=== PATIENT | male | born 1980 | race Caucasian/White ===

== ENCOUNTER 2023-04-18 13:27 | Emergency (ER) | payer MEDICAID, SELFPAY ==
[2023-04-18 13:39] VITALS: BP 132/72; PULSE 82; RESP 15; TEMP 36.9; O2SAT 94
--- NOTE | 2023-04-18 13:45 | DI.US_ITS ---
Exam(s) US SCROTUM EXAM: US SCROTUM CLINICAL HISTORY: LLQ pain, Left Testicle pain, R/O Hernia. TECHNIQUE: Scrotal ultrasound performed using grayscale, color-flow and spectral Doppler analysis. COMPARISON: No exams were available for comparison FINDINGS: Right testicle: 5 x 2.7 x 4.7 cm Echogenicity: Normal. Contour: Smooth. Mass: None seen. Microlithiasis: None. Hydrocele: 2.2 x 1.2 x 0.7 cm hydrocele. Variocele: None. Hernia: No peristalsing bowel loop identified. Epididymis: 6 mm epididymal cyst. Left testicle: 6 x 2.4 x 3.8 cm Echogenicity: Normal. Contour: Smooth. Mass: None seen. Microlithiasis: None. Hydrocele: None. Variocele: None. Hernia: No peristalsing bowel loop identified. Epididymis: Normal. Left inguinal region: There is a fat containing hernia in the left inguinal region. It does not exte nd into the scrotal sac. The opening of the hernia measures 1.9 cm. DOPPLER: Color: Symmetric and uniform, no hyperemia. IMPRESSION: 1. Normal appearing bilateral testicles. 2. Fat containing left inguinal hernia. It does not extend into the scrotal sac. 3. Findings were discussed with Mary Spear at 3:47 p.m. on 04/18/2023. DATA REPOSITORY:
--- NOTE | 2023-04-18 14:02 | W.ED.GENAD ---
Discharge Plan Disposition Patient Disposition: Home Condition: Stable Discharge Details Clinical Impression: Left inguinal hernia Primary Care Provider: Joaquin Pinedo ED Provider: Mary Spear Discharge Instructions Instructions: Inguinal Hernia (ED) Additional Instructions: Ultrasound shows a fat containing inguinal hernia. This explains the discomfort you have been feeling. Please follow-up with general surgery to discuss options for having this repaired. At this time there is no abnormality in the testicle. Your labs are largely within normal limits. Follow up with primary care provider in 3-5 days. Return to ED sooner if any worsening pain, swelling, vomiting, fever or concerns. Increase oral fluids. Please take Tylenol or Ibuprofen with food every 4-6 hours as needed for pain and swelling. Referrals: Joaquin Pinedo [Primary Care Provider] - Return if symptoms worsen Joanne Sherman DO [OSTEOPATHIC DOCTOR] - 2 weeks Discharge Data Discharge Date/Time-TO BE ENTERED AT DEPARTURE: 04/18/23 16:01 Medical Decision Making 42-year-old male presents to the ER with chief complaint of left lower quadrant abdominal pain which radiates into his left testicle which has gotten worse over the last few days. Pain is worse with moving and palpation. He denies any nausea vomiting diarrhea denies any fever or chills. No history of abdominal surgeries. Denies any problems urinating or dysuria. CBC, CMP, lipase urinalysis ordered. Ultrasound scrotum ordered to rule out hernia versus epididymitis versus orchitis. Other differential diagnosis include diverticulitis, gastroenteritis, musculoskeletal strain. CBC is within normal limits, CMP largely within normal limits BUN slightly elevated at 19 creatinine 1.2, urinalysis shows trace ketones no evidence of UTI no leukocytes, no nitrites. US shows a fat containing inguinal hernia, no other abnormality. Instructed patient to follow-up with general surgery, given strict return instructions and home care. This text was generated using TMation system, please disregard any oddities of phrase or misspellings. Lab Data Lab results reviewed: Yes I reviewed the patient's lab results. Labs: Laboratory Tests Range/Units 04/18/23 04/18/23 04/18/23 14:02 14:02 14:02 WBC (4.4-10.8) 10^3/uL 8.89 RBC (4.36-5.78) 10^6/uL 5.08 Hgb (13.5-17.5) g/dL 15.1 Hct (40.0-50.0) % 44.6 MCV (80-95) fL 88 MCH (27.0-33.0) pg 29.7 MCHC (32.0-36.0) % 33.9 RDW (11.8-14.1) % 13.0 Plt Count (130-400) 10^3/uL 223 MPV (8.0-11.0) fL 10.6 Immature Gran % 0.2 Neutrophils % 72.6 Lymphocytes % 20.5 Monocytes % 5.5 Eosinophils % 1.1 Basophils % 0.1 Nucleated RBC % (0.0-0.3) % 0.0 Absolute Neutrophils (1.2-6.7) 10^3/uL 6.45 Absolute Lymphocytes (1.2-3.4) 10^3/uL 1.82 Absolute Monocytes (0.1-0.8) 10^3/uL 0.49 Absolute Eosinophils (0.0-0.7) 10^3/uL 0.10 Absolute Basophils (0.0-0.2) 10^3/uL 0.01 Sodium (136-145) mmol/L 139 Potassium (3.5-5.1) mmol/L 3.7 Chloride (98-107) mmol/L 103 Carbon Dioxide (21.0-32.0) mmol/L 28.1 Anion Gap (3-11) mmol/L 7.9 BUN (7-18) mg/dL 19 H Creatinine (0.70-1.30) mg/dL 1.2 Est GFR (CKD-EPI 2020) (mL/min/1.73m2) 77.92 Glucose (74-106) mg/dL 106 Calcium (8.5-10.1) mg/dL 9.4 Magnesium (1.8-2.4) mg/dL 2.1 Total Bilirubin (0.2-1.0) mg/dL 0.6 AST (15-37) U/L 23 ALT (16-63) U/L 38 Alkaline Phosphatase (46-116) U/L 54 Total Protein (6.4-8.2) g/dL 7.3 Albumin (3.4-5.0) g/dL 4.4 Lipase (16-77) U/L 40 Urine Color (Yellow) Urine Clarity (Clear) Urine pH (5-8) Ur Specific [place] (1.005-1.025) Urine Protein (Negative) mg/dL Urine Ketones (Negative) mg/dL Urine Blood (Negative) Urine Nitrite (Negative) Urine Bilirubin (Negative) Urine Urobilinogen (Up to 0.2) mg/dL Ur Leukocyte Esterase (Negative) Urine Glucose (Negative) mg/dL Range/Units 04/18/23 14:54 WBC (4.4-10.8) 10^3/uL RBC (4.36-5.78) 10^6/uL Hgb (13.5-17.5) g/dL Hct (40.0-50.0) % MCV (80-95) fL MCH (27.0-33.0) pg MCHC (32.0-36.0) % RDW (11.8-14.1) % Plt Count (130-400) 10^3/uL MPV (8.0-11.0) fL Immature Gran % Neutrophils % Lymphocytes % Monocytes % Eosinophils % Basophils % Nucleated RBC % (0.0-0.3) % Absolute Neutrophils (1.2-6.7) 10^3/uL Absolute Lymphocytes (1.2-3.4) 10^3/uL Absolute Monocytes (0.1-0.8) 10^3/uL Absolute Eosinophils (0.0-0.7) 10^3/uL Absolute Basophils (0.0-0.2) 10^3/uL Sodium (136-145) mmol/L Potassium (3.5-5.1) mmol/L Chloride (98-107) mmol/L Carbon Dioxide (21.0-32.0) mmol/L Anion Gap (3-11) mmol/L BUN (7-18) mg/dL Creatinine (0.70-1.30) mg/dL Est GFR (CKD-EPI 2020) (mL/min/1.73m2) Glucose (74-106) mg/dL Calcium (8.5-10.1) mg/dL Magnesium (1.8-2.4) mg/dL Total Bilirubin (0.2-1.0) mg/dL AST (15-37) U/L ALT (16-63) U/L Alkaline Phosphatase (46-116) U/L Total Protein (6.4-8.2) g/dL Albumin (3.4-5.0) g/dL Lipase (16-77) U/L Urine Color (Yellow) Yellow Urine Clarity (Clear) Clear Urine pH (5-8) 5.5 Ur Specific [place] (1.005-1.025) >= 1.030 H Urine Protein (Negative) mg/dL Negative Urine Ketones (Negative) mg/dL Trace H Urine Blood (Negative) Negative Urine Nitrite (Negative) Negative Urine Bilirubin (Negative) Negative Urine Urobilinogen (Up to 0.2) mg/dL 0.2 Ur Leukocyte Esterase (Negative) Negative Urine Glucose (Negative) mg/dL Negative HPI General Mode of arrival: ambulatory. Date/Time Provider Initiated Documentation: 04/18/23 13:52. Limitations to Documentation: no limitations. Information obtained by: patient, RN notes reviewed and old records reviewed. HPI Narrative: 42-year-old male presents to the ER with chief complaint of left lower quadrant abdominal pain which radiates into his left testicle which has gotten worse over the last few days. Pain is worse with moving and palpation. He denies any nausea vomiting diarrhea denies any fever or chills. No history of abdominal surgeries. Denies any problems urinating or dysuria. Related Data Allergies Allergy/AdvReac Type Severity Reaction Status Date / Time clindamycin Allergy Intermediate Other (See Unverified 04/18/23 13:44 Comment) General Stated Complaint: Abd Prob CHUCHO: 3 Review of Systems All systems reviewed & are unremarkable except as noted in HPI and below Gastrointestinal Gastrointestinal: Reports as per HPI and Reports abdominal pain Genitourinary Genitourinary: Reports as per HPI, Denies penile discharge and Reports testicular pain [facility] All Active Problems (Updated 04/18/23 @ 15:52 by Mary Spear NP) Left inguinal hernia (Acute) Social History Smoking risk assessment performed?: No Exam Narrative Exam Narrative: Constitutional: Alert and oriented x3. Appears stated age. Normal body habitus. Head: Normocephalic, no trauma. Eyes: Pupils PERRL, Red reflex noted, EOM's intact. Eyelids symmetrical without lesions, discharge, or swelling. Chest: RRR, Normal S1, S2, distal pulses intact. Resp: Lungs clear to auscultation bilaterally, no wheezes, rales, or rhonchi. Abdomen: Soft, non-distended, Normoactive bowel sounds all 4 quads. Tenderness with palpation left lower quadrant and left testicle tenderness with palpation, no significant testicle swelling or erythema, no palpable hernia no testicle discharge noted. [place] juvenile court judge at bedside for witness. Musculoskeletal: Normal gait, 5/5 strength to all four extremities. Skin: No suspicious rashes or lesions. Capillary refill less than 2 sec. Neurologic: Cranial nerves II-XII intact. Alert and oriented x 3. Motor: No deficits noted. Sensory: Intact bilaterally all 4 extremities. Hematologic/Lymphatic: No ecchymosis, no lymphadenopathy. Course Vital Signs Vital signs: Vital Signs Temperature 36.9 C 04/18/23 13:39 Pulse 82 04/18/23 13:39 Respiratory Rate 15 04/18/23 13:39 Blood Pressure 132/72 04/18/23 13:39 Pulse Oximetry 94 04/18/23 13:39 Temperature 36.9 C 04/18/23 13:39 Temperature Source Oral 04/18/23 13:39 Pulse 82 04/18/23 13:39 Respiratory Rate 15 04/18/23 13:39 Blood Pressure 132/72 04/18/23 13:39 Blood Pressure Position Sitting 04/18/23 13:39 Pulse Oximetry 94 04/18/23 13:39 Oxygen Delivery Method Room Air 04/18/23 13:39 Oxygen Flow Rate 0 04/18/23 13:39 Pain Level 4 04/18/23 13:39
[2023-04-18 14:21] LABS: Abs Immature Grans 0.02 10^3/uL (0.0-0.06); Absolute Basophil Count 0.01 10^3/uL (0.0-0.2); Absolute Lymphocyte Count 1.82 10^3/uL (1.2-3.4); Absolute Monocyte Count 0.49 10^3/uL (0.1-0.8); Absolute Neutrophil Count 6.45 10^3/uL (1.2-6.7); Basophils % 0.1; Eosinophils % 1.1; HCT 44.6 % (40.0-50.0); HGB 15.1 g/dL (13.5-17.5); Immature Grans % 0.2; Lymphocytes % 20.5; MCH 29.7 pg (27.0-33.0); MCHC 33.9 % (32.0-36.0); MCV 88 fL (80-95); MPV 10.6 fL (8.0-11.0); Monocytes % 5.5; Neutrophils % 72.6; Platelet Count 223 10^3/uL (130-400); RBC 5.08 10^6/uL (4.36-5.78); RDW-SD 42.4 fL; WBC 8.89 10^3/uL (4.4-10.8)
[2023-04-18 14:24] LABS: Lipase 40 U/L (16-77)
[2023-04-18 14:29] LABS: ALT 38 U/L (16-63); AST 23 U/L (15-37); Albumin 4.4 g/dL (3.4-5.0); Alkaline Phosphatase 54 U/L (46-116); Anion Gap 7.9 mmol/L (3-11); BUN 19 mg/dL (7-18); Bilirubin, Total 0.6 mg/dL (0.2-1.0); CO2 28.1 mmol/L (21.0-32.0); CREATININE 1.2 mg/dL (0.70-1.30); Calcium 9.4 mg/dL (8.5-10.1); Chloride 103 mmol/L (98-107); Estimated GFR 77.92 (mL/min/1.73m2); Glucose 106 mg/dL (74-106); Magnesium 2.1 mg/dL (1.8-2.4); Potassium 3.7 mmol/L (3.5-5.1); Sodium 139 mmol/L (136-145); Total Protein 7.3 g/dL (6.4-8.2)
[2023-04-18 15:10] LABS: Bilirubin Negative (Negative); Blood Negative (Negative); Clarity Clear (Clear); Glucose Negative (Negative); Ketones Trace mg/dL (Negative); Leukocyte Esterase Negative (Negative); Nitrite Negative (Negative); Specific Gravity >= 1.030 (1.005-1.025); Urobilinogen 0.2 mg/dL (Up to 0.2); pH 5.5 (5-8)
--- NOTE | 2023-04-18 15:55 | NUR.NOTE ---
Nursing Note:general surgery referral
== END 2023-04-18 16:01 | disposition home or self-care (01) ==
PROVIDERS: Emergency Provider Registered Nurse Emergency; PCP Naturopath
DX: R10.32 Left lower quadrant pain (principal); K40.90 Unilateral inguinal hernia, without obstruction or gangrene, not specified as recurrent; N50.812 Left testicular pain
CPT/HCPCS: 36415; 80053; 83690; 99284; 76870; 81003; 83735; 85025; 99283

== ENCOUNTER 2023-05-17 07:08 | Day surgery (SDC) | payer MEDICAID, SELFPAY ==
[2023-05-17] VITALS (11 sets, daily range): BP systolic 128–151; BP diastolic 77–98; PULSE 65–78; RESP 16–22; TEMP 36–36.8; O2SAT 94–99; BMI 29.9
--- NOTE | 2023-05-17 07:08 | W.PM.PROGNOT ---
Date of Service Date of service: 05/17/23 Time of Service: 08:58 Assessment and Plan Assessment and plan (1) Bilateral inguinal hernia: Status: Acute Assessment and plan: Cholo is a pleasant 42-year-old gentleman who on exam has small bilateral inguinal hernias which are both reducible.? I reviewed the pathophysiology of inguinal hernias with him as well as the open repair.? We reviewed the surgery itself as well as the risks, benefits and complications.? I also reviewed restrictions after surgery which includes 4 weeks of no lifting pulling or pushing more than 10 pounds. We discussed pain control after surgery. He wished to proceed Proceed with Bilateral open inguinal hernia repair with mesh Subjective Subjective Interval history since last seen: I am seeing Chris in [facility] today with his . He is doing well. He is not having any new symptoms. We went over the surgery, its complications, pain control after surgery as well as post-op expectations. Exam Const General: cooperative, comfortable and no acute distress Nutritional Appearance: average body habitus Orientation: alert and oriented x3 HENMT Head: normocephalic and atraumatic Resp Effort & Inspection: normal respiratory effort GI Palpation: hernia (bilateral inguinal) Time Spent with Patient Time Spent with Patient: <25 minutes Time was spent: counseling the patient
--- NOTE | 2023-05-17 07:08 | W.PM.OP ---
Date of service: 05/17/23 Time of Service: 10:36 Operative Note Operative Note DATE OF PROCEDURE: 05/17/23 PRE-OP DIAGNOSIS: Bilateral inguinal hernias POST-OP DIAGNOSIS: other (Bilateral direct and indirect hernia ) PROCEDURE: Bilateral open inguinal hernia repair with mesh SURGEON: Sandrine Mancia Refer to Anesthesia Record ESTIMATED BLOOD LOSS: 20 COMPLICATIONS: None Patient was transported to: PACU Patient's condition: stable Implants: PerFix Light Plug Right: [id number] LOT- [id number] 2027-07-08 Left: REF [id number] LOT- [id number] - 2027-07-08 Indications: Cholo is a pleasant 42-year-old gentleman who on exam has small bilateral inguinal hernias which are both reducible.? I reviewed the pathophysiology of inguinal hernias with him as well as the open repair.? We reviewed the surgery itself as well as the risks, benefits and complications.? I also reviewed restrictions after surgery which includes 4 weeks of no lifting pulling or pushing more than 10 pounds. We discussed pain control after surgery Findings: Right- cord lipoma, Small indirect and small direct hernia Left- Cord lipoma. large indirect hernia and mod direct hernia Procedure Description: After informed consent was obtained the patient was taken to the operating room and placed in a supine position. Monitors and SCDs were applied and a timeout was done. The patient's name, date of , procedure type, procedure site, allergies to medications, preoperative antibiotic, and DVT prophylaxis were all reviewed. Fire risk was assessed. Next anesthesia did a tap block on both sides under ultrasound guidance. Please see their separate dictation. Once anesthesia was done the abdomen was prepped and draped in a sterile surgical fashion. 0.5% Marcaine was injected into the dermis in the right lower quadrant. An incision was made with a 10 blade in the right lower quadrant. Dissection was done with cautery through the subcutaneous tissues and Suzi's fascia down to the external oblique fascia. The external ring was identified and the external oblique fascia was opened sharply through the external ring. The cut fascia was grasped with hemostats the cord structures were identified and a Lisa drain was placed around them. The ilioinguinal nerve was identified and cut. The cremasteric muscle was dissected away from the cord structures using both cautery and blunt dissection. A hernia sac was identified and removed from the cord structures using blunt dissection. The hernia sac was suture ligated and amputated. The remnant was pushed back into the peritoneum. An XL plug was placed into the indirect defect and secured with 3-0 proline. A cord lipoma was identified and removed from the cord structures. A flat piece of mesh was then attached to the lacunar ligament using a 2-0 Prolene double armed suture. The mesh was secured laterally and medially with a 2-0 Prolene, with a running suture. The tails of the mesh were wrapped around the cord structures effectively cinching down the internal ring. Once the mesh was secured the tissues were irrigated with some normal saline. No bleeding was identified. The external oblique fascia was reapproximated using 2-0 Vicryl running suture. The Suzi's fascia was reapproximated using interrupted 3-0 Vicryl. The dermis was reapproximated with a running 4-0 Vicryl. Next 0.5% Marcaine was injected into the dermis in the left lower quadrant. An incision was made with a 10 blade in the left lower quadrant. Dissection was done with cautery through the subcutaneous tissues and Suzi's fascia down to the external oblique fascia. The external ring was identified and the external oblique fascia was opened sharply through the external ring. The cut fascia was grasped with hemostats the cord structures were identified and a [place] drain was placed around them. The ilioinguinal nerve was identified and cut. The cremasteric muscle was dissected away from the cord structures using both cautery and blunt dissection. A large hernia sac was identified and removed from the cord structures using blunt dissection. The hernia sac was suture ligated and amputated. The remnant was pushed back into the peritoneum. An XL plug was placed into the indirect defect and secured with 3-0 proline. A cord lipoma was identified and removed from the cord structures. A flat piece of mesh was then attached to the lacunar ligament using a 2-0 Prolene double armed suture. The mesh was secured laterally and medially with a 2-0 Prolene, with a running suture. The tails of the mesh were wrapped around the cord structures effectively cinching down the internal ring. Once the mesh was secured the tissues were irrigated with some normal saline. No bleeding was identified. The external oblique fascia was reapproximated using 2-0 Vicryl running suture. The Suzi's fascia was reapproximated using interrupted 3-0 Vicryl. The dermis was reapproximated with a running 4-0 Vicryl. The skin was cleaned and dried and dermabond was applied. The patient was woken up and taken back to recovery in stable condition. There were no immediate complications. Sponge, instrument and needle counts were correct at the end of the case x2.
--- NOTE | 2023-05-17 07:10 | W.PM.DSUDISC ---
Date of service: 05/17/23 Time of Service: 12:43 Discharge Plan Disposition Patient Disposition: Home Condition: Stable Discharge Details Reason For Visit: bilateral inguinal hernias Attending Provider: Sandrine Mancia Primary Care Provider: Joaquin Pinedo Home Meds and New Rx's Prescriptions: New oxycodone 5 mg tablet 5 mg PO Q6H PRNQty: 14 0RF Continued cholecalciferol (vitamin D3) 50 mcg (2,000 unit) capsule 50 mcg PO DAILY ascorbic acid (vitamin C) 250 mg tablet 250 mg PO BID tong[place] Ali 1 tab PO DAILY psyllium husk 2.6 gram/4.1 gram powder 1 tbsp PO DAILY Rx Instructions: mix into at least 8 oz of water or juice before administering Discharge Instructions Instructions: Inguinal Hernia Repair (DC) Additional Instructions: Activity at Home after surgery: 1. Make sure you walk outside at least 4 times per day 2. You should be able to climb a flight of stairs 3. No driving while in pain or taking pain medications 4. No strenuous activity or heavy lifting for 2 weeks (laparoscopic surgery) or 4 weeks (open surgery) Diet, Nutrition, & wound healin. Avoid alcohol until after you are recovered from your surgery 2. Make sure to eat plenty of lean protein (meat, fish, eggs, cottage cheese, beans) 3. Eat a variety of fruits and vegetables. Eat plenty of high fiber foods to avoid constipation. 4. Drink plenty of liquids to stay hydrated and avoid constipation Pain Medications: 1. Tylenol 650mg every 6 hours as needed and Ibuprofen 600 mg every 6 hours as needed. You may alternate between the 2 medications every 3 hours 2. If a narcotic has been prescribed take as directed only for breakthrough pain For Constipation: 1. Take Milk of Magnesia or MiraLax as needed for constipation Other: 1. You may shower daily. Do not scrub the incisions 2. Do not soak the incisions for 1 week 3. You may alternate ice and heat as needed for pain and swelling Wound Care: 1. Keep the incisions clean and dry Please call our office if you develop: 1. Fevers >101.5 2. Nausea or Vomiting 3. Worsening pain 4. Redness and thick discharge from the wounds If after hours please call the Hospital at and ask to speak to the on-call surgeon Stand Alone Forms: Anesthesia Discharge InstOswaldo, Guillermina Ventura ([facility]U) Referrals: Sandrine Mancia MD [ [facility] STAFF PHYSICIAN] - 05/29/23 8:00 am Activity:: as above Remove Dressings/Wound Care:: Do Not Remove Shower/Bathe:: 24 hours Diet:: As Tolerated Discharge Orders Discharge Orders: Discharge Order (Routine); Ordered 05/17/23 Ordered By: Sandrine Mancia DS: Diagnosis Discharge Diagnosis (1) Bilateral inguinal hernia: Status: Acute Asessment and Plan: The patient is doing well post-op from their Bilateral inguinal hernia surgery.? They are having no nausea or vomiting. They are tolerating liquids and a snack. The pt is not having any chest pain or SOB.? Their pain is adequately controlled. They have been able to urinate.? ?HEENT:? no eye pain/drainage/redness/swelling. Mild sore throat ?Cardio- NSR, no chest pain, BP stable- see VS record ?Pulm: no sob or productive cough. No hemoptysis ?Incision- dressing is c/d/i w/ no excessive bleeding or drainage ?I discussed with the patient the findings at the time of surgery and the patient?s progress. ?We reviewed expectations at home; what the patient could expect for recovery time, and in the post-operative period.? We discussed the importance of walking to avoid blood clots and pneumonia.? We discussed and reviewed the patient's post-operative wound care and dressing needs.?? We reviewed their step-carcamo pain management plan, Rx called to the pharmacy of their choice.? We reviewed activity and limitations-see discharge instructions. We reviewed warning signs, and when to seek medical attention- see d/c instructions.?? Patient was given a postoperative follow-up appointment. Patient verbalized understanding of their postoperative instructions, how do to take care of themselves and their incision, and the pain management plan. Please see discharge instructions.?
[2023-05-17] MEDS: Celecoxib 200 MG CAP PO (07:36)
[2023-05-17] MEDS: Acetaminophen 500 MG TAB 1000 MG PO (07:36)
[2023-05-17] MEDS: Gabapentin 300 MG CAP 600 MG PO (07:36)
[2023-05-17] MEDS: Lactated Ringers 1,000 ML 80 ML IV (07:38)
--- NOTE | 2023-05-17 08:06 | ANES.PREOP_ITS ---
General Info Date of Service Date Performed: 05/17/23 Height: 6 ft 2 in Weight: 105.8 kg Body Mass Index (BMI): 29.9 Surgical Procedure: Operation Date: 05/17/23 09:40 Proposed Procedure Side Surgeon p Herniorrhaphy Inguinal w/Mesh Bilateral Sandrine Mancia MD Meds Allergies and Home Medications Allergies Allergy/AdvReac Type Severity Reaction Status Date / Time clindamycin Allergy Intermediate Other (See Unverified 05/17/23 07:10 Comment) Home Medication Medication Instructions Recorded ascorbic acid (vitamin C) 250 mg 250 mg PO BID 04/24/23 tablet cholecalciferol (vitamin D3) 50 50 mcg PO DAILY 04/24/23 mcg (2,000 unit) capsule psyllium husk 2.6 gram/4.1 gram 1 tbsp PO DAILY 04/24/23 oral powder tong[place] Ali 1 tab PO DAILY 04/24/23 Current Visit Medications: Current Medications Generic Name Dose Route Start Last Admin Trade Name Freq PRN Reason Stop Dose Admin Acetaminophen 1,000 mg 05/17/23 06:00 05/17/23 07:36 Acetaminophen 500 Mg Tab PO 05/17/23 23:59 1,000 mg PREOP TONI Administration Celecoxib 200 mg 05/17/23 06:00 05/17/23 07:36 Celecoxib 200 Mg Cap PO 05/17/23 23:59 200 mg PREOP TONI Administration Gabapentin 600 mg 05/17/23 06:00 05/17/23 07:36 Gabapentin 300 Mg Cap PO 05/17/23 23:59 600 mg PREOP TONI Administration Ringer's Solution 1,000 mls @ 80 mls/hr 05/17/23 06:00 05/17/23 07:38 IV 06/15/23 23:59 80 mls/hr INFUSION TONI Administration Ondansetron HCl 4 mg/ Sodium 52 mls @ 200 mls/hr 05/17/23 07:12 Chloride IVPB 06/16/23 07:11 Q6H PRN PRN Cefazolin Sodium/Dextrose 2 gm in 50 mls @ 100 mls/hr 05/17/23 06:00 Ancef Duplex IVPB 05/17/23 23:59 PREOP TONI IV Miscellaneous Supplies 1 each 05/17/23 06:00 Iv Access IV 06/15/23 23:59 DIRECTED TONI Oxycodone HCl 5 mg 05/17/23 07:12 Oxycodone 5 Mg Tab PO 06/16/23 07:11 Q3H PRN PRN Pain Sodium Chloride 0 ml 05/17/23 06:00 Normal Saline Flush 10 Ml Syr IV 06/15/23 23:59 PRN PRN Sodium Chloride 0 ml 05/17/23 06:00 Normal Saline 10 Ml Vial IJ 06/15/23 23:59 DIRECTED PRN Sterile Water 0 ml 05/17/23 06:00 Water,Injection,Sterile 10 Ml Vial IJ 06/15/23 23:59 DIRECTED PRN PFSH Active Problems Active Problems: Problem Status Onset Code Hernia K46.9 Bilateral inguinal hernia K40.20 Left inguinal hernia K40.90 Tobacco Smoking/Tobacco Use Status: Former Tobacco Use Alcohol Alcohol Intake: former Substance Use Substance use: Daily Substance use type: marijuana Vital Signs and Lab Results Vital Signs Most Recent Vital Signs in EMR: Most Recent Vital Signs Temp Pulse Resp BP Pulse Ox 36.4 C L 78 16 138/78 99 05/17/23 07:15 05/17/23 07:15 05/17/23 07:15 05/17/23 07:15 05/17/23 07:15 Lab Results Blood Type / Crossmatch: No Data to Display Complete Blood Count: White Blood Count 8.89 10^3/uL (4.4-10.8) 04/18/23 14:02 Red Blood Count 5.08 10^6/uL (4.36-5.78) 04/18/23 14:02 Hemoglobin 15.1 g/dL (13.5-17.5) 04/18/23 14:02 Hematocrit 44.6 % (40.0-50.0) 04/18/23 14:02 Platelet Count 223 10^3/uL (130-400) 04/18/23 14:02 Complete Metabolic Panel: Sodium 139 mmol/L (136-145) 04/18/23 14:02 Potassium 3.7 mmol/L (3.5-5.1) 04/18/23 14:02 Chloride 103 mmol/L (98-107) 04/18/23 14:02 Carbon Dioxide 28.1 mmol/L (21.0-32.0) 04/18/23 14:02 BUN 19 mg/dL (7-18) H 04/18/23 14:02 Creatinine 1.2 mg/dL (0.70-1.30) 04/18/23 14:02 Est GFR (CKD-EPI 2020) 77.92 (mL/min/1.73m2) 04/18/23 14:02 Magnesium 2.1 mg/dL (1.8-2.4) 04/18/23 14:02 Calcium 9.4 mg/dL (8.5-10.1) 04/18/23 14:02 Albumin 4.4 g/dL (3.4-5.0) 04/18/23 14:02 Glucose 106 mg/dL (74-106) 04/18/23 14:02 Liver Function Panel: Alanine Aminotransferase (ALT/SGPT) 38 U/L (16-63) 04/18/23 14: 02 Aspartate Amino Transf (AST/SGOT) 23 U/L (15-37) 04/18/23 14:02 Coagulation Panel: No Data to Display Cardiac Panel: No Data to Display Arterial Blood Gas: No Data to Display Venous Blood Gas: No Data to Display Pancreas Panel: Lipase 40 U/L (16-77) 04/18/23 14:02 Thyroid Panel: No Data to Display Infectious Disease: No Data to Display Blood Cultures: No Data to Display Toxicology Panel: No Data to Display Anesthesia Assessment and Plan Anesthesia History Personal History: No History of Anesthesia Complications Family History: No Family History of Anesthesia Complications Exercise Tolerance Exercise Tolerance: Metabolic Equivalents>4 Pertinent Negatives Pertinent Negatives: No Symptoms of GERD, No Major Cardiovascular Symptoms or Complaints and No Major Pulmonary Symptoms or Complaints Cardiac & Pulmonary Exam Cardiac Exam: Normal S1/S2 Heart Sounds Pulmonary Exam: Clear Bilateral Breath Sounds Implantable Cardiac Device Does patient have a Pacemaker or an ICD?: No Airway Exam Known Difficult Airway: No Mallampati Class: 1 Mouth Opening: Normal (> 3cm) Thyromental Distance: Greater than 3 cm Neck Range of Motion: Full ROM Neck Circumference: Normal Teeth Condition: Normal Dentition ASA Classification ASA Score: ASA 2 Emergency Case?: No NPO Status NPO Status: NPO Clears >2 hours, Solids >8 hours Anesthesia Plan Resuscitation Status: Full Code Anesthesia Technique: General Anesthesia Airway Planned: LMA Pain Management: Surgeon and patient request nerve block Monitors Used: Standard Monitors
[2023-05-17] MEDS: ceFAZolin 2 GM/50 ML BAG IVPB (09:08)
[2023-05-17] MEDS: Bupivacaine 0.25% Pres-Free 30 ML VIAL (09:38)
--- NOTE | 2023-05-17 09:40 | W.ANESNERVE ---
Nerve Block Single Injection Procedure Date and Time Date Performed: 05/17/23 Procedure Start: 09:20 Location Where Procedure Performed Procedure Location: Operating Room Procedure Stop: 09:31 Reason Performed: Postoperative Analgesia Requesting Provider: Sandrine Mancia Timeout Performed Timeout Performed: Yes Monitoring Used ECG, Blood Pressure, SpO2, ETCO2 and See EMR for corresponding vital signs Sterility Sterility: Hand Hygiene, Surgical Cap, Surgical Mask, Sterile Gloves and Chlorhexidine Sedation Given During Procedure Sedation Given (Indicate Dose Given): No Sedation given Patient Mental Status Patient Mental Status: Performed under general anesthesia Nerve Block 1st Nerve Block: Laterality: Bilateral Block Type: TAP Bilateral Ultrasound Image Saved?: Yes Needle / Catheter Used: 100mm SonoPlex II Local Anesthetic Bolus (Indicate Dose Given): Lidocaine used for local infiltration of skin, Injected in 3-5ml increments after negative blood aspiration, Half of Total block solution given into each side, Bupivacaine 0.5% Dose:: 20ml and Exparel Dose:: 20ml Additives (Indicate Dose Given): Normal Saline (20ml) Ultrasound: Sterile probe cover and gel used Nerve Stimulator: Not Used Paresthesia: None Procedure Tolerated: No Complications and Patient tolerated well Procedure Outcome: Successful Performed By: Loy Coles
[2023-05-17] MEDS: fentaNYL 100 MCG/2 ML VIAL IVP ×2 (11:10→11:20)
--- NOTE | 2023-05-17 11:32 | W.ANESPOSTOP ---
Postoperative Evaluation Date, Time and Location Date Performed: 05/17/23 Time Performed: 11:32 Patient Location: PACU Vital Signs Most Recent Imported Vital Signs: Most Recent Vital Signs Temp Pulse Resp BP Pulse Ox 36.5 C 76 16 140/89 98 05/17/23 11:20 05/17/23 11:20 05/17/23 11:20 05/17/23 11:20 05/17/23 11:20 Pain Score Most Recent Pain Score: Most Recent Pain Score Pain Level 4 05/17/23 11:20 Assessment Mental Status: Awake (Alert & Oriented to Patient Baseline) Airway and Respiratory Function: Patent airway with normal (patient baseline) respiratory exam Cardiovascular Function: Hemodynamically Stable Hydration Status: Adequately Hydrated Nausea & Vomiting: No Nausea or Vomiting Pain: Pain is tolerable per patient Peripheral Nerve Block: Regional nerve block not resolved at time of post operative discharge
[2023-05-17] MEDS: oxyCODONE 5 MG TAB PO (12:53)
--- NOTE | 2023-05-17 12:55 | NUR.NOTE ---
C/O 6 out of 10 incisional pain when getting OOB to dress. Oxycodone 5 mg PO given with effect pending. Nursing Note:
== END 2023-05-17 13:30 | disposition home or self-care (01) ==
PROVIDERS: PCP Naturopath; Visit Provider Surgery
PROC: (CPT 49505; principal; 2023-05-17 09:30)
DX: K40.20 Bilateral inguinal hernia, without obstruction or gangrene, not specified as recurrent (principal)
CPT/HCPCS: 49505; 76942; C1781; J0690; J1100; J1885; J2250; J2405; J3010

== ENCOUNTER → 2023-09-12 00:25 | Outpatient (CLI) | payer MEDICAID, SELFPAY ==
--- NOTE | 2023-09-12 07:30 | DI.CT_ITS ---
Exam(s) CT ABDOMEN PELVIS W EXAM: CT ABDOMEN PELVIS W CLINICAL HISTORY: s/p right inguinal hernia repair, post-op pain,r10.30,g89.18 TECHNIQUE: Imaging Protocol: Axial computed tomography images with coronal and sagittal reformatted images were created and reviewed CONTRAST MATERIAL: Intravenous: Omnipaque 350 Contrast volume:100 mL Oral: Yes COMPARISON: US US SCROTUM from 04/18/2023 US POCUS EXAM from 05/17/2023 FINDINGS: ABDOMEN: Lung Bases: Normal where visualized. Liver: Normal density. No measurable mass. Portal, Superior Mesenteric, and Splenic Veins: Unremarkable. Gallbladder and Biliary Tract: No radiodense calculus or dilation. Pancreas: Normal density, no abnormal calcifications or inflammatory process. Spleen: Normal. Adrenals: No masses seen. Kidneys: Normal size, contour and axis. No radiodense stones or obstructive uropathy. No masses seen. Abdominal Aorta: Abdominal portion non-dilated. Mild atherosclerosis. Bowel: No obstruction or bowel wall thickening. Appendix is unremarkable. Peritoneal Cavity: No ascites, collection or mesenteric inflammatory response. No free air. Lymph Nodes: Within normal limits. Bones: Within normal limits for the patient's age. Soft Tissues: There are postsurgical changes of bilateral inguinal hernia repairs. No evidence of a recurrent inguinal hernia. PELVIS: Bladder: The bladder is incompletely distended. There is thickening of the wall of the urinary bladd er. Reproductive Organs: Unremarkable as visualized. Lymph Nodes: Within normal limits. Bones: Within normal limits for the patient's age. IMPRESSION: 1. No acute abdominal or pelvic process. 2. No evidence of a recurrent inguinal hernia. No evidence of an inguinal mass or fluid collection t o suggest an abscess. 3. Mild thickening of the wall of the urinary bladder likely due to incomplete distension. Inflammat ory infectious process is considered less likely, but cannot be excluded. Please correlate clinicall y. RADIATION DOSE DELIVERED: Total DLP DATA REPOSITORY: All CT scans at this facility are submitted to the National Radiology Data Registry (NRDR) Dose Index Registry (DIR) with the [employer] ([employer]). RADIATION OPTIMIZATION: All CT scans at this facility use at least one of these dose optimization te chniques: automated exposure control; mA and/or kV adjustment per patient size (includes targeted exa ms where dose is matched to clinical indication); or iterative reconstruction.
[2023-09-12] MEDS: Normal Saline - Diluent 50 ML VIAL IJ (10:07)
[2023-09-12] MEDS: Omnipaque 350 MG/ML 500 ML BTL-Imaging package IJ (10:08)
[2023-09-12] MEDS: Barium Sulfate 2% W/V-Berry Smoothie 450 ML BTL PO (10:27)
== END ==
PROVIDERS: PCP Naturopath; Visit Provider Physical Therapy Assistant
DX: G89.18 Other acute postprocedural pain (principal); R10.30 Lower abdominal pain, unspecified
CPT/HCPCS: 74177